=== PATIENT | female | born 1980 | race African-American/Black ===

== ENCOUNTER 2023-11-06 16:19 | Emergency (ER) | payer SELFPAY ==
[~2023-11-06] VITALS: Ht 170.2 cm; Wt 73.9 kg
[2023-11-06] MEDS ORDERED: ACETAMINOPHEN ES 500 MG TABLET ONE (17:35)
[2023-11-06] MEDS ORDERED: CYCLOBENZAPRINE 10 MG TABLET ONE (17:36)
[2023-11-06] MEDS: ACETAMINOPHEN ES 500 MG TABLET PO ONE (18:21)
[2023-11-06] MEDS: CYCLOBENZAPRINE 10 MG TABLET PO ONE (18:21)
[2023-11-06] MEDS ORDERED: KETOROLAC TROMETHAMINE 15 MG/ML VIAL ONE (18:22)
[2023-11-06] MEDS: KETOROLAC TROMETHAMINE 15 MG/ML VIAL IM ONE (18:29)
[2023-11-06] MEDS ORDERED: CYCL5TAB PO (20:04)
[2023-11-06] MEDS ORDERED: IBUP-1955 PO (20:04)
[2023-11-06] MEDS ORDERED: ACET-2605 PO (20:04)
[2023-11-06 20:07] VITALS: BP 131/80; TEMP 99.6; O2SAT 0
== END 2023-11-06 20:13 | disposition home or self-care (01) ==
LOC: ER 16:30
DX: R07.89 Other chest pain (principal); M54.6 Pain in thoracic spine; V43.52XA Car driver injured in collision with other type car in traffic accident, initial encounter; Y93.89 Activity, other specified; Y92.89 Other specified places as the place of occurrence of the external cause; Y99.8 Other external cause status
CPT/HCPCS: 99284; 96372; 71111; 72074; 73130; 73110; J1885